=== PATIENT | female | born 1980 ===

== ENCOUNTER 2018-04-15 17:49 | Emergency (ER) | payer MEDICAID ==
[2018-04-15] MEDS ORDERED: Ketorolac INJ* 30 MG/ML 1 ML VIAL IM ONE (19:18)
--- NOTE | 2018-04-15 19:34 | UC ---
Complaint Female HPI - HPI Summary HPI Summary: 37 year old female with history of fibromyalgia, HTN here with urinary symptoms for 5 days. She reports urgency, frequency and dysuria. She states that she usually just drinks cranberry and symptoms improve but it didnt help this time, prompting her to come to the ED. No flank pain. No vaginal discharge. - History Of Current Complaint Chief Complaint: UCGU Stated Complaint: UTI Time Seen by Provider: 04/15/18 18:39 Hx Last Menstrual Period: IUD Onset/Duration: Gradual Onset Timing: Constant Severity Initially: Mild Pain Intensity: 8 Aggravating Factor(s): Movement - Allergies/Home Medications Allergies/Adverse Reactions: Allergies Allergy/AdvReac Type Severity Reaction Status Date / Time tramadol Allergy Hives Verified 04/15/18 18:41 Home Medications: Home Medications Lisinopril/HCTZ 08/27.(NF) [Zestoretic 08/27.(NF)] 1 tab PO DAILY 04/15/18 [ History Confirmed 04/15/18] PMH/Surg Hx/FS Hx/Imm Hx - Surgical History Surgical History: Yes Surgery Procedure, Year, and Place: BACK SURGERY - Social History Alcohol Use: None Substance Use Type: None Smoking Status (MU): Never Smoked Tobacco Review of Systems Constitutional: Negative Skin: Negative Eyes: Negative ENT: Negative Respiratory: Negative Cardiovascular: Negative Gastrointestinal: Negative Genitourinary: Dysuria, Frequency, Urgency Motor: Negative Neurovascular: Negative Musculoskeletal: Negative Neurological: Negative Psychological: Negative All Other Systems Reviewed And Are Negative: Yes Physical Exam Triage Information Reviewed: Yes Appearance: Well-Appearing, No Pain Distress Vital Signs: Initial Vital Signs Temp 35.8 C 04/15/18 18:36 Pulse 99 04/15/18 18:36 Resp 22 04/15/18 18:36 BP 153/96 04/15/18 18:36 Pulse Ox 96 04/15/18 18:36 ENT Exam: Normal Respiratory Exam: Normal Respiratory: Positive: Chest non-tender, Lungs clear, Normal breath sounds, No respiratory distress Cardiovascular Exam: Normal Cardiovascular: Positive: RRR, No Murmur Abdomen Description: Positive: Soft, Other: - suprapubic tenderness. Negative: CVA Tenderness (R), CVA Tenderness (L) Skin Exam: Normal Complaint Female Dx - Differential Dx/Diagnosis Differential Diagnosis/HQI/PQRI: Cervicitis, Ureteral Stone, Urinary Tract Infection Provider Diagnoses: UTI. UA positive here. HCG negative Discharge - Sign-Out/Discharge Documenting (check all that apply): Discharge/Admit/Transfer - Discharge Plan Condition: Good Disposition: HOME Prescriptions: Cephalexin CAP* [Keflex CAP*] 500 mg PO BID #10 cap Phenazopyridine 200 mg (NF) [Pyridium 200 MG tab *] 200 mg PO TID PRN #12 tab PRN Reason: Pain - Mild Referrals: Erasto Estrada MD [Primary Care Provider] - - Billing Disposition and Condition Condition: GOOD Disposition: HOME
[2018-04-15] MEDS ORDERED: Cephalexin CAP* 500 MG PO ONE (19:56)
== END 2018-04-15 20:00 | disposition home or self-care (01) ==
LOC: UCEAST 17:49
DX: N39.0 Urinary tract infection, site not specified (principal); M79.7 Fibromyalgia; I10 Essential (primary) hypertension; Z88.5 Allergy status to narcotic agent
CPT/HCPCS: 81003; 84702; 87077; 87086; 87186; 99212; A9270-GY; G0463; J1885

== ENCOUNTER 2018-09-24 19:01 | Emergency (ER) | payer MEDICAID, OTHER ==
--- NOTE | 2018-09-24 19:54 | UC ---
Complaint Female HPI - HPI Summary HPI Summary: 38 y/o female presents to the urgent care c/o burning and frequency on urination since this morning. Pt states about 6 months ago she had similar symptoms and was Dx w/ UTI. Pain w/ urination is 2/10. Pt took an Ibuprofen PO this morning and symptoms improved for some hrs. Now it was returned. She has been drinking water. pt denies fever, flank pain, lower back pain, abdominal pain, N/v/D, vaginal discharge. - History Of Current Complaint Stated Complaint: URINARY COMPLAINT Time Seen by Provider: 09/24/18 19:52 Hx Obtained From: Patient Hx Last Menstrual Period: IUD Onset/Duration: Gradual Onset, Lasting Hours - 12 hrs, Still Present Timing: Lasting Hours - 12 hrs Severity Initially: Mild Severity Currently: Mild Pain Intensity: 2 Pain Scale Used: 0-10 Numeric Character: Burning Aggravating Factor(s): Urination Alleviating Factor(s): Meds - ibuprofen PO Associated Signs And Symptoms: Positive: Negative. Negative: Fever, Back Pain, Vaginal Discharge, Genital Swelling, Genital Blisters - Risk Factors Ectopic Risk Factor: Negative Ovarian Torsion Risk Factor: Negative - Allergies/Home Medications Allergies/Adverse Reactions: Allergies Allergy/AdvReac Type Severity Reaction Status Date / Time tramadol Allergy Hives Verified 09/24/18 19:45 PMH/Surg Hx/FS Hx/Imm Hx Previously Healthy: Yes Other Endocrine History: fibromyalgia Cardiovascular History: Hypertension GI/ History: Gastroesophageal Reflux - Surgical History Surgical History: Yes Surgery Procedure, Year, and Place: BACK SURGERY - Family History Known Family History: Positive: Hypertension Family History: skin cancer - Social History Occupation: Employed Full-time Lives: With Family Alcohol Use: None Substance Use Type: None Smoking Status (MU): Never Smoked Tobacco Review of Systems All Other Systems Reviewed And Are Negative: Yes Constitutional: Positive: Negative Skin: Positive: Negative Eyes: Positive: Negative ENT: Positive: Negative Respiratory: Positive: Negative Cardiovascular: Positive: Negative Gastrointestinal: Positive: Negative Genitourinary: Positive: Dysuria, Frequency, Urgency Motor: Positive: Negative Neurovascular: Positive: Negative Musculoskeletal: Positive: Negative Neurological: Positive: Negative Psychological: Positive: Negative Is Patient Immunocompromised?: No Physical Exam - Summary Physical Exam Summary: VITAL SIGNS: Reviewed. GENERAL: Patient is a well developed and nourished obese female who is sitting comfortable in the examining table. Patient is not in any acute respiratory distress. HEAD AND FACE: No signs of trauma. No ecchymosis, hematomas or skull depressions. No sinus tenderness. EYES: PERRLA, EOMI x 2, No injected conjunctiva, clear watery eyes, no nystagmus. No photophobia. EARS: Hearing grossly intact. Ear canals and tympanic membranes are within normal limits. MOUTH: pharynx with no erythema, no exudates,no palatal petechiae. no B/L tonsillar enlargement Uvula in midline. NECK: Supple, trachea is midline, no lymphadenopathy, no JVD, no carotid bruit, no c-spine tenderness, neck with full ROM. CHEST: Symmetric, no tenderness at palpation LUNGS: Clear to auscultation bilaterally. No wheezing or crackles. CVS: Regular rate and rhythm, S1 and S2 present, no murmurs or gallops appreciated. ABDOMEN: Soft, non-tender. No signs of distention. No rebound no guarding, and no masses palpated. Bowel sounds are normal. BACK:no scoliosis or lesions, non tender to palpation, No B/L CVA tenderness EXTREMITIES: FROM in all major joints, no edema, no cyanosis or clubbing. NEURO: Alert and oriented x 3. No acute neurological deficits. Speech is normal and follows commands. SKIN: Dry and warm Triage Information Reviewed: Yes Complaint Female Dx - Course Course Of Treatment: 38 y/o female presents to the urgent care c/o burning and frequency on urination since this morning. Pt states about 6 months ago she had similar symptoms and was Dx w/ UTI. Pain w/ urination is 2/10. Pt took an Ibuprofen PO this morning and symptoms improved for some hrs. Now it was returned. She has been drinking water. pt denies fever, flank pain, lower back pain, abdominal pain, N/v/D, vaginal discharge. Hx obtained. UA and test ordered. UA results: Blood trace, Leukoesterase 1+. test: negative. Pt Rx Keflex PO x 7 days. Pyridium 100mg PO TID x 2 days. Advised to increase fluid intake. Urine sent for culture if any abnormality Pt will be notified for further treatment. Pt advised If symptoms do not improve to return to the urgent care or f/u with PCP. Pt understood and agreed. Left the clinic ambulating. - Differential Dx/Diagnosis Differential Diagnosis/HQI/PQRI: Cervicitis, Renal Colic, Ureteral Stone, Urinary Tract Infection Provider Diagnoses: 1- UTI. 2- dysuria Discharge - Sign-Out/Discharge Documenting (check all that apply): Patient Departure - d/c home All imaging exams completed and their final reports reviewed: No Studies - Discharge Plan Condition: Stable Disposition: HOME Prescriptions: Cephalexin CAP* [Keflex CAP*] 500 mg PO BID #14 cap Phenazopyridine TAB* [Pyridium 100 mg TAB*] 100 mg PO TID #6 tab Patient Education Materials: Urinary Tract Infection in Women (ED) Referrals: Erasto Estrada MD [Primary Care Provider] - 3 Days Additional Instructions: 1- Please take Keflex 100mg PO x 7 days. Pyridium 100 mg PO TID x 2 days to alleviate urinary symptoms. Increase increase fluid intake. drink cranberry juice. 2-Urine sent for culture if any abnormality, you will be notified for further treatment. 3-If symptoms do not improve please return to the urgent care or f/u with PCP in 3 days . - Billing Disposition and Condition Condition: STABLE Disposition: Home
== END 2018-09-24 20:25 | disposition home or self-care (01) ==
LOC: UCEAST 19:01
DX: N39.0 Urinary tract infection, site not specified (principal); R30.0 Dysuria; I10 Essential (primary) hypertension; M79.7 Fibromyalgia; Z88.6 Allergy status to analgesic agent
CPT/HCPCS: 81003; 84702; 87077; 87086; 99212; G0463